=== PATIENT | female | born 1950 | race Caucasian/White ===

== ENCOUNTER 2022-06-12 11:10 | Outpatient (CLI) | payer MEDICARE, SELFPAY ==
--- NOTE | 2022-06-12 11:15 | CRLHL7_ITS ---
For Patients: As a result of the Century Cures Act, medical imaging exams and procedure reports are released immediately into your electronic medical record. You may view this report before your referring provider. If you have questions, please contact your health care provider. Technique: Double-contrast esophagram performed after the uneventful administration of effervescent crystals and thick barium followed by thin barium. Fluoroscopy time 1 minute 8 seconds. Indication: Dysphagia Comparison: None. Findings: Normal swallowing mechanism. Large volume reflux to the proximal esophagus. Tertiary contractions located throughout the mid and distal esophagus. Decreased esophageal motility with inability to completely clear the esophagus despite in the upright position. Sliding hiatal hernia measuring approximately 2.3 cm. Impression: Large volume spontaneous reflux to the proximal esophagus with reflux esophagitis involving the mid and distal esophagus along with a small hiatal hernia. EGD recommended for further evaluation. Dictated by Matt Lazo MD @ 06/13/2022 6:26:47 AM (Electronically Signed)
== END 2022-06-12 11:11 | disposition home or self-care (01) ==
PROVIDERS: PCP Internal Medicine; Visit Provider Internal Medicine
DX: R13.10 Dysphagia, unspecified (principal); K21.00 Gastro-esophageal reflux disease with esophagitis, without bleeding; R19.8 Other specified symptoms and signs involving the digestive system and abdomen
CPT/HCPCS: 74221